=== PATIENT | male | born 1975 | race Caucasian/White ===

== ENCOUNTER 2018-07-30 16:57 | Emergency (ER) | payer BC ==
[~2018-07-30] VITALS: Ht 193 cm; Wt 117.9 kg
[2018-07-30] MEDS ORDERED: CYCLOBENZAPRINE10 MG PO (17:57)
[2018-07-30] MEDS ORDERED: METHYLPREDNISOLO4 M1 PO (17:57)
== END 2018-07-30 18:31 | disposition home or self-care (01) ==
LOC: ED 16:57
DX: M54.41 Lumbago with sciatica, right side (principal); Z88.0 Allergy status to penicillin
CPT/HCPCS: 99283; J1100

== ENCOUNTER 2021-12-25 18:21 | Emergency (ER) | payer BC ==
[~2021-12-25] VITALS: Ht 193 cm; Wt 122.5 kg
[~2021-12-25 18:21] MED LIST: CYCLOBENZAPRINE10 MG PO; METHYLPREDNISOLO4 M1 PO
== END 2021-12-25 23:05 | disposition home or self-care (01) ==
LOC: ED 18:21
DX: S61.412A Laceration without foreign body of left hand, initial encounter (principal); Z23 Encounter for immunization; W26.8XXA Contact with other sharp object(s), not elsewhere classified, initial encounter; Z88.0 Allergy status to penicillin
CPT/HCPCS: 12002; 90471; 90715; 99282-25